=== PATIENT | female | born 1980 | race Caucasian/White ===

== ENCOUNTER → 2020-01-28 11:20 | Outpatient (BNVA) | payer OTHER, SELFPAY | PROVIDERS: Visit Provider Nurse Practitioner Family | DX: Z11.59 Encounter for screening for other viral diseases (principal) | CPT/HCPCS: 87635 ==

== ENCOUNTER 2021-12-19 09:19 | Outpatient (CLI) | payer OTHER, SELFPAY | END 2021-12-19 09:20 | disposition home or self-care (01) | PROVIDERS: PCP Registered Nurse; Visit Provider Urology | DX: N20.1 Calculus of ureter (principal) | CPT/HCPCS: 74018; 81003 ==

== ENCOUNTER 2021-12-22 07:59 | Outpatient (CLI) | payer OTHER, SELFPAY ==
--- NOTE | 2021-12-22 08:30 | XR_ITS ---
WS: [id number] Exam: XR KUB [id number] Date/Time of Exam: 12/22/2021 8:30 AM Reason For Exam: stones No bowel obstruction or free air. Visualized organ margins appear normal. Bony structures are intact. XR/XR KUB [id number] IMPRESSION: 1. No acute abdominal process.
== END 2021-12-22 08:00 | disposition home or self-care (01) ==
PROVIDERS: PCP Registered Nurse; Visit Provider Urology
DX: N20.1 Calculus of ureter (principal)
CPT/HCPCS: 74018; 81003; 88300

== ENCOUNTER → 2021-12-25 10:45 | Outpatient (BNVA) | payer OTHER, SELFPAY | PROVIDERS: PCP Registered Nurse; Visit Provider Urology | DX: N20.1 Calculus of ureter (principal) | CPT/HCPCS: 82365 ==